=== PATIENT | male | born 1955 | race Two or more races ===

== ENCOUNTER 2020-02-24 12:54 | Inpatient (IN) | payer OTHER ==
[~2020-02-24] VITALS: Ht 274.3 cm; Wt 5.0 kg
[2020-02-24] MEDS ORDERED: SYNTHROID112 MCG (13:25)
[2020-02-24] MEDS ORDERED: TAMS0.4C (13:26)
[2020-02-24] MEDS ORDERED: SIMVASTATIN5 MG PO (13:26)
[2020-02-24] MEDS ORDERED: GLIPIZIDE XL5 MG (13:26)
[2020-02-24] MEDS ORDERED: XANAX2 MG (13:27)
== END 2020-03-09 19:03 | disposition home or self-care (01) | DRG 872 ==
LOC: ER 12:54 → SEC-K 20:07 → SURG 20:07 → SURH 03-03 15:28 → SURG 03-03 15:30 → SURH 03-04 17:40
PROVIDERS: ADMIT Internal Medicine; ATTEND Internal Medicine
PROC: 4A033R1 Measurement of Arterial Saturation, Peripheral, Percutaneous Approach (ICD-10-PCS; principal; 2020-02-24)
PROC: BW28ZZZ Computerized Tomography (CT Scan) of Head (ICD-10-PCS; 2020-02-24)
PROC: BW21ZZZ Computerized Tomography (CT Scan) of Abdomen and Pelvis (ICD-10-PCS; 2020-02-24)
PROC: CP2 Nuclear Medicine, Musculoskeletal System, Tomographic (Tomo) Nuclear Medicine Imaging (ICD-10-PCS; 2020-02-24)
PROC: CP2 Nuclear Medicine, Musculoskeletal System, Tomographic (Tomo) Nuclear Medicine Imaging (ICD-10-PCS; 2020-02-24)
PROC: CP2 Nuclear Medicine, Musculoskeletal System, Tomographic (Tomo) Nuclear Medicine Imaging (ICD-10-PCS; 2020-02-24)
PROC: B24BZZZ Ultrasonography of Heart with Aorta (ICD-10-PCS; 2020-02-26)
DX: A41.9 Sepsis, unspecified organism (principal); N41.0 Acute prostatitis; N13.8 Other obstructive and reflux uropathy; M33.22 Polymyositis with myopathy; E03.9 Hypothyroidism, unspecified; E11.65 Type 2 diabetes mellitus with hyperglycemia; T38.0X5A Adverse effect of glucocorticoids and synthetic analogues, initial encounter; N20.0 Calculus of kidney; N40.1 Benign prostatic hyperplasia with lower urinary tract symptoms; F32.89 Other specified depressive episodes; Z79.4 Long term (current) use of insulin; Z20.828 Contact with and (suspected) exposure to other viral communicable diseases
CPT/HCPCS: 72198; 73221

== ENCOUNTER 2020-03-23 01:24 | Emergency (ER) | payer OTHER ==
[~2020-03-23] VITALS: Ht 175.3 cm; Wt 74.4 kg
[~2020-03-23 01:24] MED LIST: GLIPIZIDE XL5 MG; SIMVASTATIN5 MG PO; SYNTHROID112 MCG; TAMS0.4C; XANAX2 MG
[2020-03-23] MEDS ORDERED: ALENDRONATE SOD70 MG PO (01:41)
[2020-03-23] MEDS ORDERED: ALPRAZOLAM0.5 MG PO (01:42)
[2020-03-23] MEDS ORDERED: ADMELOG100 UNIT/1 SQ (01:42)
[2020-03-23] MEDS ORDERED: ALPRAZOLAM2 MG PO (01:42)
[2020-03-23] MEDS ORDERED: RESTORIL30 MG PO (01:43)
[2020-03-23] MEDS ORDERED: SEMGLEE100 UNIT/1 SUBCUTANEO (01:43)
[2020-03-23] MEDS ORDERED: RISPERIDONE1 MG PO (01:43)
== END 2020-03-23 04:38 | disposition home or self-care (01) ==
LOC: ER 01:24
DX: I80.8 Phlebitis and thrombophlebitis of other sites (principal); T80.1XXA Vascular complications following infusion, transfusion and therapeutic injection, initial encounter

== ENCOUNTER 2023-04-13 22:02 | Emergency (ER) | payer OTHER ==
[~2023-04-13] VITALS: Ht 175.3 cm; Wt 79.8 kg
[~2023-04-13 22:02] MED LIST changes: +ADMELOG100 UNIT/1 SQ; +ALENDRONATE SOD70 MG PO; +ALPRAZOLAM0.5 MG PO; +ALPRAZOLAM2 MG PO; +RESTORIL30 MG PO; +RISPERIDONE1 MG PO; +SEMGLEE100 UNIT/1 SUBCUTANEO
== END 2023-04-14 01:36 | disposition home or self-care (01) ==
LOC: ER 22:04
DX: U07.1 COVID-19 (principal)